=== PATIENT | female | born 1940 | race Caucasian/White ===

== ENCOUNTER 2021-06-18 11:49 | Emergency (ER) | payer OTHER, MEDICARE ==
[2021-06-18] MEDS ORDERED: LASIX 40 MG TAB40 M2 PO (15:59)
[2021-06-18] MEDS ORDERED: MIRTAZAPINE7.5 MG PO (15:59)
[2021-06-18] MEDS ORDERED: HYDROCHLOROTHIA25 M1 PO (16:00)
[2021-06-18] MEDS ORDERED: SYNTHROID112 MC1 PO (16:00)
[2021-06-18] MEDS ORDERED: KLOR-CON 10 ER10 MEQ PO (16:01)
[2021-06-18] MEDS ORDERED: XARELTO20 MG PO ×2 (16:01→16:02)
== END 2021-06-18 15:05 | disposition admitted as inpatient to this hospital (09) ==
LOC: ER 11:49
PROVIDERS: Nurse Practitioner
DX: F32.9 Major depressive disorder, single episode, unspecified (principal); Z20.822 Contact with and (suspected) exposure to COVID-19; R45.851 Suicidal ideations; Z88.0 Allergy status to penicillin

== ENCOUNTER 2021-06-18 13:06 | Inpatient (IN) | payer OTHER, MEDICARE ==
[~2021-06-18] VITALS: Ht 165.1 cm; Wt 112.5 kg
[2021-06-18] MEDS ORDERED: MIRTAZAPINE7.5 MG PO (15:59)
[2021-06-18] MEDS ORDERED: LASIX 40 MG TAB40 M2 PO (15:59)
[2021-06-18] MEDS ORDERED: HYDROCHLOROTHIA25 M1 PO (16:00)
[2021-06-18] MEDS ORDERED: SYNTHROID112 MC1 PO (16:00)
[2021-06-18] MEDS ORDERED: XARELTO20 MG PO ×2 (16:01→16:02)
[2021-06-18] MEDS ORDERED: KLOR-CON 10 ER10 MEQ PO (16:01)
--- NOTE | 2021-06-18 19:32 | NUR ---
FRONT DESK LEAD went to do skin assessment on client after initial assessment on client had been performed. Client is an elderly female who voices concerns of anxiety, and voices feelings of being afraid of being alone in psychiatric facility as this is her first time being in such a facility. Assessment revealed bilateral bruises on both forearms of client. Client had bruises two inches in diameter on both antecubital spaces, with significant bruising present on both hands on the top of hands at about one and a half inches in diameter. Bruising was also present lower than antecubital area at about two inches in diameter. About six bruises were there in all. Client stated that these bruises were there from previous IV lines. Additional bruise was found on her left leg under knee cap at one inch in diameter. Client could not remember where she got this bruise. Bruises were all blue/purple in color. Client voiced that she felt safe at home and was not experiencing domestic violence. Further assessment revealed slight edema in both hands, with +1 edema in both hands. Pulse ox showed 92% oxygen rate and heart rate was slightly elevated at 114 while sitting. Client voiced that she does see a cable engineer and needs to make a follow up appointment- client voiced that her cable engineer did suggest putting in a pacemaker, but that she has not had one at this time. Further edema was present on both legs, with +2 edema on both calves and feet. Client stated that she is supposed to take a diuretic for this but that she has not had if for several days. Upon examination of feet, skin was dry, and toes were curled downward and sideways. Client did not voice any pain in toes, though did state that her legs were hurting her and that she would request tylenol later tonight before she went to bed. Assessment of neck and back revealed several moles in various shapes and sizes. Client stated that she has had the moles for years, and used to frequent a dermotologist prior. Straight scar was found along spine about two inches down, which client stated was from mole excision. Client stated that the moles did not bother her, though several moles are elevated and raised, with asymetry being present. Client could not remember the last time she went to dermotologist per report. No other redness, bruising, or edema was observed at this time. No further concerns voiced currently. Client was assisted into fall risk shirt after this, and helped into bed at end of assessment.
[2021-06-18 19:44] VITALS: BP 140/84
[2021-06-18 19:46] VITALS: BP 152/93
--- NOTE | 2021-06-19 03:36 | NUR ---
WHEN TALKING WITH PATIENT, SHE EXPLAINED WHY SHE TRIED TO OVERDOSE. SHE BELIEVES THAT SHE IS A BURDEN TO HER DAUGHTER AND SON-IN-LAW THAT THEY SOLD HER HOUSE AND TOOK HER MONEY. QUESTIONING HER FURTHER I FOUND OUT THAT THE CLOSING DATE ON THE HOUSE IS NOT TILL THE END OF JULY AND THE MONEY IS TO GO INTO A CHECKING ACCOUNT THAT HER DAUGHTER HAS ACCESS TOO BECAUSE DAUGHTER HELPS HER PAY HER BILLS. PATIENT'S IN IN A MEMORY CARE UNIT THAT COST $3600 A MONTH AND PATIENT IS ADAMENT ABOUT TAKING CARE OF HER . AFTER MORE QUESTIONING, PATIENT LET ME KNOW THAT SHE WENT IN TO DAUGHTERS ROOM AND TOOK THE PILLS OUT OF HER SON-IN-LAWS NIGHTSTAND. PATIENT DISCLOSED TO ME THAT DAUGHTER AND HAVE NEVER DONE ANYTHING TO MAKE HER FELL UNWANTED AND SHE SAYS SHE WILL NEVER TRY TO HURT HER SELF AGAIN BECAUSE IT HURT TO MUCH.
[2021-06-19 05:47] LABS: URINE BILIRUBIN NEGATIVE (Negative); URINE BLOOD 2+ (Negative); URINE CLARITY TURBID; URINE COLOR YELLOW; URINE GLUCOSE-RANDOM* NEGATIVE (Negative); URINE KETONES NEGATIVE (Negative); URINE LEUKOCYTES 3+ (Negative); URINE NITRITE NEGATIVE (Negative); URINE PROTEIN (DIPSTICK) 2+ (Negative); URINE UROBILINOGEN 0.2 E.U./dl (0.2-1.0)
[2021-06-19 06:23] LABS: CASTS None Seen /LPF (None Seen); SQUAMOUS 0-3 Few /LPF (0-3); URINE WBC >25 Many /HPF (NONE SEEN); WBC CLUMPS Packed (None Seen)
[2021-06-19 06:24] LABS: URINE RBC 1-2 Rare /HPF (NONE SEEN)
[2021-06-19 06:25] LABS: BACTERIA 1-9 Few /HPF (None Seen); CRYSTALS None Seen /LPF (None Seen)
[2021-06-19 06:52] LABS: CHOLESTEROL 167 mg/dL (<200); HDL CHOLESTEROL 62 mg/dL (>40); LDL CHOLESTEROL 95 mg/dL (<100); TC:HDL 2.7 Ratio (Not establshd); TRIGLYCERIDE 53 mg/dL (<150); VLDL 11 mg/dL (<40)
[2021-06-19 06:55] LABS: SERUM ASSESSMENT Clear
[2021-06-19 10:15] LABS: ANION GAP 11 mmol/L (7-16); BUN 23 mg/dL (7-18); CALCIUM 9.2 mg/dL (8.5-10.1); CHLORIDE 99 mmol/L (98-107); CO2 28 mmol/L (21-32); CREATININE 1.1 mg/dL (0.6-1.0); GLUCOSE 106 mg/dL (74-106); POTASSIUM 3.5 mmol/L (3.5-5.1); SODIUM 138 mmol/L (136-145)
--- NOTE | 2021-06-19 10:40 | NUR ---
New admit to [facility] with SI, depression. Pt on regular diet. Class III extreme obesity BMI 41. Lipid profile wnl. Presents low nutrition risk
[2021-06-19 10:43] VITALS: BP 128/64
[2021-06-19 10:58] VITALS: BP 142/65
--- NOTE | 2021-06-19 14:13 | NUR ---
PATIENT CARE ASSUMED AT 0700 - HAS SPENT ALL MORNING IN HER ROOM. YELLS OUT RANDOMLY FOR HELP - ABLE TO MANUVER AROUND WITH ENCOURAGEMENT. WORKED [facility] AND ADVISED DID WEL WITH WALKING WITH WALKER. NEEDS HELP WHEN STANDING UP BUT MAINTAINING FIRM DEALER COMPLIANCE REPRESENTATIVE ON WALKER FOR PATIENT TO PULL HERSELF UP. DOES WELL AND THEN SCOOTS ACROSS FLOOR TO BATHROOM. HANDLES OWN ADL'S VERY WELL. HAS DIFFICULTY SITUATING HERSELF IN BED DUE TO WEIGHT BUT WITH REASSURANCE CAN PULL HERSELF UP. PATIENT UPSET WITH DAUGHTERS - FEELS THEY PUT HER IN HERE WITHOUT PROVOCATION. ADVISED NOT CASE THAT OVERDOSE WAS HER TICKET INTO OUR FACILITY. EXPLAINED THIS TO HER AND APPEARS SHE GRASPED IT WELL. PATIENT REMORSEFUL ABOUT OVERDOSE AND STATED JUST WANTS TO RETURN HOME. PATIENT STATES WAS SECOND ATTEMPT AT OVERDOSE IN HER LIFE.
[2021-06-19 19:29] VITALS: BP 146/75
[2021-06-20 01:06] LABS: GLYCOHEMOGLOBIN (HGB A1C) 5.6 % (4.8-5.6)
--- NOTE | 2021-06-20 03:21 | NUR ---
PATIENT HAS SLEPT ONLY MAYBE A HALF HOUR EACH HOUR SHE HAS TO URINATE EVERY HOUR AND WANTS TO TALK ABOUT ALL OF HER PROBLEMS EVERY TIME SHE IS TAKEN TO THE BATHROOM. I TRY TO USE THERAPEUTIC CONVERSATION BUT PATIENT DOES NOT WANT TO LISTEN. PER DAY REPORT, PATIENT REFUSED TO COME OUT OF HER ROOM ALL DAY BUT INSISTED THAT STAFF NEEDED TO KEEP HER COMPANY. SO, I DON'T KNOW IF SHE ACTUALLY HAS TO URINATE THAT MUCH OR IF SHE JUST WANTS COMPANY. PATIENT IS DEPRESSED BECAUSE OF HER GOING TO MEMORY CARE AND I BELIEVE SHE HAS NO HOBBIES EXCEPT READING. PATIENT IS MEDICATION COMPLIANT AND AT TIMES IS CONFUSED.
[2021-06-20 09:29] VITALS: BP 119/74
--- NOTE | 2021-06-20 11:39 | NUR ---
Alert and orientated X4. Denies SI/HI and states she wants to be discharged. Calm and cooperative. Able to ambulate with walker with slow, steady gait but does become weak and slightly SOB with long distances. Breath sounds clear. Reg HR auscultated. Color pink with brisk capillary refill and palpable peripheral pulses. Yellow urine per toilet with BM. Active bowel sounds over large, soft, rounded abdomen. Some discomfort in upper quadrants with deep palpation of abdomen. Participated in AM group and then slept in room rest of AM.
[2021-06-20 19:19] VITALS: BP 112/53
--- NOTE | 2021-06-20 22:09 | H ---
[facility] [place] [address] HISTORY AND PHYSICAL Name: SUJATHA DAN Room #: 524A-A ADM IN M.R.#: [id number] Admission: 06/18/21 Attend Phys: Ted French DO Discharge: Date of : 40 Report #: [id number] THIS REPORT FOR: cc: FAM - Family physician unknown FAM - Family physician unknown Ted French DO ~ DATE OF SERVICE: 06/18/2021 INPATIENT PSYCHIATRIC EVALUATION ATTENDING PSYCHIATRIST: Ted French DO MEDICAL CONSULTANTS: ROBERT Foreman and Santana Durham MD, the chief hospitalist. SOURCES OF INFORMATION: Interview with the patient, records from [facility], records from [facility]. CHIEF COMPLAINT: Unspecified, but sent to us for Tylenol overdose. HISTORY OF PRESENT ILLNESS: This is an 81-year-old obese female with past history of depression, medical history of obesity and osteoarthritis. She was admitted to the medical intensive care unit at [facility] after an acetaminophen overdose. From the records I have available, apparently she was brought to an outside hospital ED on 06/18 evening due to worsening sleepiness. Upon initial assessment, her Tylenol level was 343. The patient reported taking Tylenol 23 tabs intentionally earlier in the morning. She was given p.o. acetylcysteine and later intravenous, unknown dose; however, the patient was transferred to [facility] due to lack of IV acetylcysteine in an outside facility. Records stated at a complete review of systems was obtained and was negative except for the symptoms reviewed above. IMMUNIZATION HISTORY: She is . Her has advanced dementia and was placed in nursing facility. She has 3 daughters according to the patient. She denied history of alcohol or recreational drug use or smoking. LABORATORY DATA: From [facility] from 06/10, white count 12.4, hemoglobin 15.1, hematocrit 44.7, platelet count 343. PTT 30.4, INR 1.6. Most recent electrolytes from were sodium 131, potassium 2.6, chloride 95, bicarbonate 21, BUN 8, creatinine 0.55, GFR greater than 60, glucose 75, calcium 8.2, phosphate 1.5, albumin 3.7, alkaline phosphatase 48, AST 170, ALT 227, total bilirubin 0.9. Diagnoses at medically were hypothyroidism, hypokalemia, recurrent acute deep [facility] [address] [place] [address] HISTORY AND PHYSICAL Name: SUJATHA DAN Room #: 524A-A ADM IN .R.#: [id number] Admission: 06/18/21 Attend Phys: Ted French, Discharge: Date of : 40 Report #: [id number] venous thrombosis of right lower extremity, hypophosphatemia and hyperlipidemia. Psychiatric diagnoses are depression and Tylenol ingestion. They reported at , she had 2 suicide attempts in the last week before admission. The patient reported multiple home stressors including recently placed her at Memory Care facility and moving in with the daughter. She stated to me her daughter has bought a new house in [place], [place], where she intends to live at. It is noted on the paperwork that her liver enzymes peaked on 06/10; AST 529, ALT 853, alkaline phosphatase 51. In addition to the acetylcysteine IV course, she received 3 days of vitamin K for coagulopathy with elevated INR and they believe that it was likely falsely elevated due to Xarelto. Hepatology was consulted. They recommended holding duloxetine and Xarelto due to high hepatic metabolism. Remeron 7.5 mg oral was started for depression. During the hospitalization, she diagnosed with high anion gap, metabolic acidosis, hyponatremia, hyperlipidemia and hypothyroidism. There was a psychiatric consultation from . The diagnoses were adjustment disorder with mixed disturbance of emotions and conduct, suicide attempt via ingestion intentional overdose, major depressive disorder, single episode, severe, without psychotic features and depression with suicidal ideation. SCHEDULED MEDICATIONS: At , it looks like they were Lasix, hydrochlorothiazide, hydrocortisone rectal cream, levothyroxine, mirtazapine, Protonix and Xarelto. That appears to be the end of records from . She did have a negative SIRS tests on 06/18. Additional information here at [facility]. VITAL SIGNS: Temperature 37.2, pulse 94, respirations 20, BP 146/75, O2 sat 96%. LABORATORY DATA: Labs here at [facility] urinalysis showed number of positives including bacteria and leukocyte esterase. Culture was triggered and is still pending. Chemistries: B12 level 1585. TSH 2.98. Free T4 of 1.4. A1c is pending. I am sure that I do have some electrolytes. Sodium 138, potassium 3.5, chloride 99, bicarbonate 28, anion gap 11, BUN 23, creatinine 1.1, estimated GFR 48, glucose 106, calcium 9.2, triglycerides 53, cholesterol 167, LDL 95, HDL 62 and our inhouse COVID-2 PCR was not detected. Regarding the patient's antidepressant given the patient's metabolic risk factors in nature, bupropion was changed to Wellbutrin XL dose of 150 mg scheduled to start tomorrow morning. For her UTI, she started on Macrobid 100 mg b.i.d. x10 doses. She is on Xarelto 20 mg with dinner, hydrocortisone topical, Lasix 40 mg daily, pantoprazole 40 mg p.o. daily, levothyroxine 112 mcg oral daily, hydrochlorothiazide 25 mg daily, mirtazapine is discontinued. Otherwise, house PRNs. The patient basically told me she has been depressed since her has to go to the prison. She was remorseful for her suicide [facility] [address] [place] [address] HISTORY AND PHYSICAL Name: SUJATHA DAN Room #: 524A-A ADM IN .R.#: [id number] Admission: 06/18/21 Attend Phys: Ted French, Discharge: Date of : 40 Report #: [id number] attempt. She states she still intends to move with her daughter who is 61. She stated she and her have been 62 years. I did not get a great educational history, developmental history with her and tend to followup later. PHYSICAL EXAMINATION: GENERAL: Recumbent in bed, obese, large body habitus, female. MENTAL STATUS EXAMINATION: This is a well developed, unkempt, appearing obese female, appearing around stated age. Attention and concentration fair. Speech slowed. Thought process: Linear and goal directed. Thought content focused on ameliorating her situation. She denied suicidal intent, denied homicidal intent. No auditory, visual, or tactile hallucinations. Memory was not formally tested. Insight and judgment were limited. Fund of knowledge well below average. FORMULATION: An 81-year-old female status post intentional suicide attempt on Tylenol, status post treatment at outside hospitals. DIAGNOSES: At this time, major depressive disorder, recurrent episode, severe degree. The patient has numerous comorbidities including recurrent deep vein thrombosis, urinary tract infection, hypothyroidism and hypertension. PLAN: Admitted voluntarily to [facility]. She was a full code. ALLERGIC TO PENICILLIN. Hospitalist is consulted. I went ahead and made an antidepressant change in the interest of having an activating antidepressant about excessive weight gain. Activating understands that my sense of her situation as she needs to be doing more things to keep busy with. Estimated length of stay 5-10 days. She will participate in milieu therapy. We will need to set up family meeting with her daughter. Time spent on this case about 45 minutes, greater than 50% of time in review of records and coordination with staff. STRENGTHS: She is insured, supportive family. WEAKNESSES: Advanced age, poor coping skills. <ELECTRONICALLY SIGNED> By: Ted French DO 06/20/212208 04 54 Ted French DO /nt
--- NOTE | 2021-06-21 02:39 | NUR ---
AT ONSET OF LEAN MANAGER PT WAS RESTING IN BED SLEEPING. THIS SHIFT PT WAS ALERT AND ORIENTED X4. PT WAS COOPERATIVE AND MOSTLY PLEASANT. PT'S SLEEP WAS POOR AND BROKEN, DUE TO PT EXPERIENCING FREQUENT URINATION RELATED TO HER UTI. PT DENIED SI STATING SHE "I WOULDN'T DO THAT AGAIN. THAT WAS A FLUKE." PT DENIED HI AND AVH. PT WAS COMPLIANT WITH MEDICATION AND VITAL SIGNS. PT STATED SHE WOULD LIKE TO DISCHARGE AND BELIEVES SHE WILL DISCHARGE THURSDAY.
[2021-06-21 09:00] VITALS: BP 117/74
--- NOTE | 2021-06-21 12:44 | NUR ---
ARMANDO and Dr. French spoke with pt's daughter and pt to discuss next steps. Dr. French will find out from PT and OT what they recommend for next steps as far as physical therapy. The plan is for pt to live with her daughter in her new home. ARMANDO sent a welcome email to Sera at [email or web address]. ARMANDO team will continue to follow pt during her stay on this unit.
--- NOTE | 2021-06-21 18:10 | NUR ---
DYSPHORIC MOOD -GUARDED WITH MINIMAL VERBAL RESPONSES DURING AM ASSESSMENT. ATE BREAKFAST IN HER ROOM PER HER REQUEST-WHEN ASKED IF SHE WOULD COME DOWN FOR RT GROUP AT 0900 REFUSES STATING ANGRILY " I DON'T WANT TO" AND TURNED BACK TO NURSE. IS NOTED TO HAVE 2-3 PLUS PEDAL EDEMA TO FEET/ANKLES BILAT BUT DENIES PAIN TO LE STATING "SHEREE HAD THAT SWELLING IN MY LEGS FOR OVER 20 YEARS" MORE VISIBLE THIS PM ATTTENDING PM GROUP AND WALKING TO DAYROOM FOR SUPPER STATING SHE WANTED TO BE AROUND OTHERS. GAIT IS SLOW/STEADY WITH USE OF ROLLER WALKER FROM
[2021-06-21 19:33] VITALS: BP 99/61
--- NOTE | 2021-06-21 23:32 | NUR ---
AT ONSET OF CYTOTECHNOLOGIST PT WAS RESTING IN BED ASLEEP. THIS SHIFT PT WAS ORIENTED TO SELF, PLACE, DATE, AND SITUATION. PT IS SOMEWHAT FORGETFUL AT TIMES. PT WAS COMPLIANT WITH MEDICATIONS AND VITAL SIGNS. PT STAYED IN BED DURING THE EVENING. RN CALLED DR. SALAS AND REQUESTED MECICATION TO HELP WITH SLEEP. PT RECEIVED 50MG TRAZODONE. PT APPEARS TO BE UNCOMFORTABLE WHEN BEING REPOSITIONED IN BED, BUT DENIED PAIN. PT DENIED SI, BUT PT WAS LESS CONVERSATIONAL THIS EVENING.
[2021-06-22 09:23] VITALS: BP 100/64
[2021-06-22 14:08] LABS: HEMATOCRIT 39.1 % (37.0-47.0); MCH 31.2 pg (26.0-34.0); MCHC 33.4 g/dL (28.0-37.0); MCV 93.4 fL (80.0-100.0); RBC 4.18 mil/uL (4.20-5.00); RDW 13.6 % (10.5-14.5); WBC 10.5 thou/uL (4.0-11.0)
[2021-06-22 14:35] LABS: CALCIUM 9.2 mg/dL (8.5-10.1); CREATININE 1.1 mg/dL (0.6-1.0); POTASSIUM 3.2 mmol/L (3.5-5.1)
--- NOTE | 2021-06-22 19:03 | NUR ---
Assumed pt care at 0700. Pt was alert and oriented x4. Assessments completed, vss. Active bowel sound. Denies si/hi, Denies pain at time. Took meds whole, no difficulty noted. Ambulates with a walker. Pt has a slow gait with ambulation. No sign of acute distress noted upon assessments. continent of bowel and bladder this shift. Makes needs known to staffs. At this time pt is in the day room. Will continue to monitor.
[2021-06-22 20:26] VITALS: BP 123/78
--- NOTE | 2021-06-23 06:24 | NUR ---
ASSUMED CARE ON 06/22/21 @ 1900, SEATED IN THE DAY ROOM A&oX3 WATCHING TV AND SOCIALIZING WITH STAFF AND PEERS. RETIRED TO BED @ AND COMPLIANT WITH MEDICATIONS. SLEPT WELL FOR 9.2 HOURS.
[2021-06-23 09:35] VITALS: BP 140/73
--- NOTE | 2021-06-23 12:45 | NUR ---
CARE ASSUMED AT 0700, PATIENT STILL IN BED WITH EYES OPENED, ALERT AND ORIENTED X4, PATIENT IS CALM, PLEASANT AND COOPERAIVE WITH CARE, PATIENT IS ON ROOM LOCK OUT FOR GROUPS, SHE ATTEND AND PATICIPATED IN GROUP TODAY. TOOK MEDICATION WHOLE, PATIENT IS INCONTINENT OF BLADDER, ASSESSMENT COMPLETED WITH ACTIVE BOWEL SOUND WITH SOFT AND ROUNDED ABDOMEN, BREATH SOUND CLEAR, REG HR, RR EVEN NONLOBORED RM AIR, SKIN INTACT, NO EDEMA NOTED, PATIENT AMBULATE ON A WALKER, ABLE TO VERBALIZED NEEDS, PATIENT DENIES SI/HI. FALL PRECAUTION IN PLACE, WILL CONTINUE TO MONITOR FOR BEHAVIOR AND SAFETY
[2021-06-23 19:48] VITALS: BP 114/59
--- NOTE | 2021-06-24 01:09 | NUR ---
PATIENT CARE WAS RESUMED AT 1900. SHE IS ALERT AND ABLE TO MADE NEEDS KNOWN. SHE AMBULATES WITH WALKER AND SHE TOOK HER PILLS WHOLE. SHE DENIES ANT DISCOMFORT AT THIS TIME. LUNGS ARE CLEAR BS ACTIVE X4 QUADS. SHE DENIES PAINS SI/AVH/HI. BED IS LOW, LOCKED AND ALARMED .YELLOW SOCKS AND TOP ARE ON. SHE IS CONTINENT OF BOWEL AND BLADDER.
[2021-06-24 09:34] VITALS: BP 119/69
--- NOTE | 2021-06-24 11:02 | NUR ---
HAS BEEN VISIBLE IN DAYROOM ATTENDED GROUPS AND MEALS WITHOUT PROMPTING-SLIGHT INCREASE IN SPONTANEOUS VERBLAIZATION AND EXPRESSION-MAKING NEEDS KNOWN IN APPROPRIATE MANNER. REPORTS CONSTIPATION STATING HAS NOT HAD BM X 3 DAYS-REFUSES OFFERS OF MOM STATING SHE IS WORRIED SHE WILL "POOP MY BED" DID ACCEPT PRUNE JUICE -BS ACTIVE X4-ABDOMEN [id number]. DOES REPORT DECREASED APPETITE AND POOR SLEEP LAST PM D/T COUGH-HAS NOT BEEN HEARD COUGHING TODAY BUT STATES HAS HAD "CONSTANT TICKLED IN BACK OF THROAT" X2 DAYS-LUNGS CLEAR-PEDAL EDEMA LE BILAT-2-3 PLUS-HARD TENSE NON-PITTING. DESCRIBES MOOD TODAY "ABOUT THE SAME-A LITTLE WORSE SINCE I DIDN'T GET MUCH SLEEP"DENIES SI/SH/HI. GAIT IS SLOW BUT STEADY WITH ASSIST OF ROLLER WALKER. HAS BEEN INDPENDENT IN TRANSFERS AND TOILETING SO FAR THIS SHIFT
--- NOTE | 2021-06-24 12:10 | NUR ---
06-24-2021--1210--Went to patient's room to administer the SLUMS. Patient in the DR. Told her I had some paperwork to do with her when she was done eating. (Patient was ambulatng with her walker.)
--- NOTE | 2021-06-24 12:56 | NUR ---
06-24-2021--1230--SLUMS given to patient. I was only to the second question and she wanted to know "What are you trying to do?" and then she laughed. I explained I was checking to see if she has dementia. She stated "NO, but my does". She was very cooperative and completed the test scoring 25/30. She asked if we could call he daughter if she's going home Thursday as they have to drive a long way. I told her I would ask the doctor.
--- NOTE | 2021-06-24 13:12 | NUR ---
robitussin 20ml given po prn at 1315 for cough per pt request.
--- NOTE | 2021-06-24 14:08 | NUR ---
06-24-2021--133--Call to patient's daughter, Sera. Patient is going to move to Sera's home in [place], [place]. DC is set for Thursday06/26/21 at 1:00 PM. Patient and I will call her back later so patient can talk to her. Patient made aware of this.
--- NOTE | 2021-06-24 14:35 | NUR ---
06-24-2021--1430--Call to [facility] in [facility].They state if her insurance doesn't cover them it would be 130.00 for 1st visit and 110.00 co-pay per visit after that. If she wants a psyciatrist it would be 150.00. They state [place] is in [facility] that there is [facility] in [place]. Number given [phone]. Attempted to make appointment and titi' do it without her present. Will call back when she comes in to talk to her daughter.
--- NOTE | 2021-06-24 15:11 | NUR ---
06-24-2021--1620--Call to [facility] ([phone]). Marie provided her with SS number and phone number. Made appt for 06-28-2021 @ 11:30. The address is [address] [place] [address]. Attempted to call daughter. No answer. Msg left to call back or we would call tomorrow.
--- NOTE | 2021-06-24 16:00 | NUR ---
06-24-2021--1066--Call from daughter and a msg left. Returned her call and told her we had made the appointment for Thursday at 11:30. I explained the information would be on the discharge papers. She stated she might call hr mom back later tonight.
[2021-06-24 19:20] VITALS: BP 117/61
[2021-06-24 20:21] VITALS: BP 117/61
--- NOTE | 2021-06-25 02:59 | NUR ---
PATIENT CARE WAS RESUMED AT 1900. SHE IS ALERT AND OREINTED WAS SITTING IN THE DININIG ROOM. SHE IS A MODERATE ASSIST WTH CARE AND TRANSFER. SHE IS ABLE TO VERALIZE HER CONCERNS. LUNGS ARE CLEAR BS ACTIVE X4 QUAD. SHE IS CONTINENT OF BOWEL AND BLADDER. SWALLOW HER MEDS WHOLE AND DENIES ANY SI/AVH/HI. SHE COMPLAINED OF PAINS TO HER BUTTOCKS AND PRN TYLENOL WAS GIVEN WITH A GOOD EFFECT. SHE WAS COUGHING AND PRN COUGH MED WAS GIVEN FEW HURS PROIR TO THIS SHIFT AND PATIENT IS NOT DUE FOR ANOTHER DOSE AT THE TIME. SHE IS CALM IN BED. [id number] CHECK IS ACTIVE. CONTINUE CARE
[2021-06-25 09:34] VITALS: BP 109/57
--- NOTE | 2021-06-25 17:37 | NUR ---
Assumed pt care at 0700. pt was alert and oriented x4. Assessments completed, vss. Lungs clear, active bowel sound. Denies si/hi. Denies pain at this time. Took meds whole, no difficulty noted. Ambulates with a walker. No sign of acute distress noted upon assessments. Continent of bowel and bladder this shift. Calm and cooperative with care. Pt had non productive cough this shift Makes needs known to staff. PRN Guaifenesin administered this shift. At this time pt is in the day room relaxing. Will continue to monitor.
[2021-06-25 19:30] VITALS: BP 135/56
--- NOTE | 2021-06-25 19:44 | NUR ---
Assumed care on 06/25/21 @ 1900, a&ox 4, HRRR, Lungs sounds CTA bilat, reports dry cough, but no cough noted while with patient. ABD N x4Q. Denies pain at first then tells that she has bone on bone pain in her knees and will be resuming injections when out of hospital. Achnowledges depression saying she misses who is in memory care, and that once out of [facility] hospitalization she will be taken to visit him by her daughter that she resides with. denies anxiety. Reports being pleased that she is discharging and going home with her daughter. Last bm noted to be jun 22. Daughter(s) called for patient and she spoke with both.
[2021-06-25 19:51] VITALS: BP 135/56
[2021-06-26] MEDS ORDERED: LORATIDINE 10 M10 M1 PO (08:59)
[2021-06-26] MEDS ORDERED: DILTIAZEM 24HR120 M1 PO (09:00)
[2021-06-26] MEDS ORDERED: BAYER CHEWABLE81 MG PO (09:01)
[2021-06-26] MEDS ORDERED: WELLBUTRIN XL150 MG PO (09:03)
[2021-06-26] MEDS ORDERED: TRAZODONE HCL50 MG PO (09:03)
[2021-06-26] MEDS ORDERED: HYDROCHLOROTHIA25 M1 PO (09:05)
[2021-06-26] MEDS ORDERED: LASIX 40 MG TAB40 M1 PO (09:05)
[2021-06-26] MEDS ORDERED: SYNTHROID112 MC1 PO (09:08)
[2021-06-26] MEDS ORDERED: PROTONIX40 M4 PO (09:08)
[2021-06-26 09:46] VITALS: BP 118/85
--- NOTE | 2021-06-26 13:14 | NUR ---
PATIENT CARE ASSUMED AT 0700, PATIENT IS ALERT AND ORIENTED X3, PATIENT SITTING IN THE COMMON AREA, CALM AND PLEASANT WITH CARE, ACTIVE BOWEL SOUND WITH SOFT ABDOMEN, LUNGS CLEAR, PATIENT TOOK MEDICATION WHOLE WITHOUT ANY PROBLEM, PATIENT DISCHAGED HOME TO HER DAUGHTER AT 1300.
--- NOTE | 2021-06-27 22:03 | D ---
[facility] [place] [address] DISCHARGE SUMMARY Name: SUJATHA DAN Room #: 524A-A DIS IN M.R.#: [id number] Admission: 06/18/21 Attend Phys: Ted French DO Discharge: 06/26/21 Date of : 40 Report #: [id number] THIS REPORT FOR: cc: FAM - Family physician unknown FAM - Family physician unknown Ted French DO ~ DATE OF SERVICE: 06/26/2021 INPATIENT PSYCHIATRIC DISCHARGE SUMMARY ATTENDING PSYCHIATRIST: Ted French DO SUPERVISOR [employer] AT THE TIME OF DISCHARGE: Luis Hinds MD DISCHARGE DIAGNOSIS: Major depressive disorder, single episode, at least severe degree. ADDITIONAL MEDICAL COMORBIDITIES: UTI, completing antibiotic course today; cough, could be BETTY-induced, referring to outpatient for further address of this issue; paroxysmal atrial fibrillation, on Xarelto, question if this is in the best interest of the patient as believe this was discontinued on this admission, it was given her advanced age, fall risk, overdose history; hypothyroidism, on replacement; hypertension; morbid obesity, BMI of 41. The patient is discharged to her daughter's home in [place], [place]. Aftercare for this patient is little confused. At the time of discharge, the family did ask for a home health prescription which I did provide for PT, OT, nursing and social work and additional social media editor, got her an appointment with [facility] for 06/28/2021 at 11:30. They are at [address] [facility] in [place], [place]. The patient is moving to a new area, so she will need to establish with the primary care. She does have multiple health issues. The patient and daughter are aware of that. Prescriptions were e-scribed to the [facility] pharmacy in [place], [place]. The patient was provided with suicide crisis hotline number. I reviewed crisis plan, importance of telling people including her daughter, son-in-law and calling the crisis hotline and not just merely trying to distract herself like watch TV if she feels suicidal. activity level as tolerated diet regular no alochol, no illicit drugs DISCHARGE MEDICATIONS: I gave her first script since she was moving to a new [facility] [address] [address] DISCHARGE SUMMARY Name: SUJATHA DAN Room #: 524A-A DIS IN [facility].#: [id number] Admission: 06/18/21 Attend Phys: Ted French DO Discharge: 06/26/21 Date of : 40 Report #: [id number] Loratadine 10 mg oral daily for allergies, 30-day script; diltiazem 120 mg capsule ER daily, #30; aspirin 81 mg oral daily for heart and AFib. Started this admission on bupropion hydrochloride xl 150 mg daily. She had previously been on mirtazapine, but because of weight metabolic issues, I felt this to be better. Daughter understands the importance of administering meds to her mother given the seizure risk and overdose. Trazodone 50 mg oral at bedtime p.r.n. for sleep, Rx given for #15; Lasix 40 mg oral daily for edema and hypertension; hydrochlorothiazide 25 mg oral daily; pantoprazole 40 mg oral daily; levothyroxine 112 mcg oral daily. MICROBIOLOGY: This admission showed greater than 80,000 CFUs on urine culture for Enterococcus faecalis. This was successfully treated with Macrobid. REASON FOR ADMISSION: An 81-year-old obese female referred to us from General acute hospital status post Tylenol overdose. She has been transferred to [facility] from the hospital in [place], [place] due to unavailability of IV N-acetylcysteine. Her Tylenol level had reached 343, but she did get rest of mucomyst at [facility]. HOSPITAL COURSE: The patient was [facility]. We had several obstacles with the patient's engagement and getting out of bed during activities earlier on, is overall improved and family conference with her daughter. The daughter wanted to give a 2-week trial with the patient living at her house. If not, she is then needed to be placed in a nursing facility. The patient's was recently placed in a nursing facility. He does have advanced Alzheimer's disease. It has been difficult for the patient. The patient basically was remorseful for her overdose suicide attempt, but other than depression and the other proximal triggers. At the day of discharge, she was no longer suicidal, homicidal, felt to be ready for step-down. PHYSICAL EXAMINATION: VITAL SIGNS: Temperature 36.5, pulse 100, respirations 17, BP 118/85, O2 sat 92%. MUSCULOSKELETAL: Well-developed female, wearing red sweat suit. Ambulates with a walker, slow. MENTAL STATUS EXAMINATION: Well-developed, obese female. Attention and concentration fair. Speech normal rate, rhythm, and tone. Thought process: Linear and goal oriented. Thought content, focused on discharge. Mood and affect euthymic, congruent, fair range. Denied suicidal or homicidal ideation; auditory, visual, or tactile hallucinations. Denied hopelessness, helplessness. Memory not formally tested on day of discharge. Insight and judgment were fair. Limited on a few issues . Fund of knowledge above average. [facility] [address] [place] [address] DISCHARGE SUMMARY Name: SUJATHA DAN Room #: 524A-A [facility] IN M.R.#: [id number] Admission: 06/18/21 Attend Phys: Ted French DO Discharge: 06/26/21 Date of : 40 Report #: [id number] Prognosis for this patient is guarded given multiple medical morbidities, age of 81, going to live in a new with her daughter. Time spent on this discharge was at least 40 minutes today. <ELECTRONICALLY SIGNED> By: Ted French DO 06/27/21 [id number] Ted French DO /nt
== END 2021-06-26 13:00 | disposition home or self-care (01) | DRG 885 ==
LOC: SBH 13:06
PROVIDERS: Nurse Practitioner Family; ADMIT Psychiatry & Neurology Psychiatry; ATTEND Psychiatry & Neurology Psychiatry
DX: F32.2 Major depressive disorder, single episode, severe without psychotic features (principal); R45.851 Suicidal ideations; Z68.41 Body mass index [BMI] 40.0-44.9, adult; N39.0 Urinary tract infection, site not specified; E66.9 Obesity, unspecified; E66.01 Morbid (severe) obesity due to excess calories; I10 Essential (primary) hypertension; R53.81 Other malaise; I48.0 Paroxysmal atrial fibrillation; F41.9 Anxiety disorder, unspecified; M19.90 Unspecified osteoarthritis, unspecified site; E03.9 Hypothyroidism, unspecified; E78.5 Hyperlipidemia, unspecified; Z20.822 Contact with and (suspected) exposure to COVID-19; Z88.0 Allergy status to penicillin; Z86.718 Personal history of other venous thrombosis and embolism; Z91.51 Personal history of suicidal behavior; Z87.440 Personal history of urinary (tract) infections; Z82.0 Family history of epilepsy and other diseases of the nervous system; Z79.899 Other long term (current) drug therapy
CPT/HCPCS: 10880